=== PATIENT | female | born 1960 | race Caucasian/White ===

== ENCOUNTER 2022-09-11 06:48 | Day surgery (SDC) | payer OTHER ==
[~2022-09-11 06:48] MED LIST: Versed 2 MG/2 ML Injection ONE
[2022-09-11] MEDS ORDERED: Lactated Ringers 1,000 ML IV ONE (07:16)
[2022-09-11] MEDS ORDERED: CEFAZOLIN 2 GM-D5W BAG** 2 GM/50 ML ML IV ONE (07:16)
[2022-09-11] MEDS ORDERED: Lactated Ringers 1,000 ML IV SCH (07:30)
[2022-09-11] MEDS ORDERED: CEFAZOLIN 2 GM-D5W BAG** 2 GM/50 ML ML IV SCH (07:30)
[2022-09-11 07:37] LABS: Hemoglobin 13.5 g/dL (12.0-16.0); Mean Cell Volume 83.2 fL (78-100); Mean Corpuscular Hemoglobin 26.7 pg (26-32); Mean Corpuscular Hgb Concent. 32.1 g/dL (32-36); Mean Platelet Volume 9.5 fL (7.5-11.0); Platelet Count 290 x10^3/uL (150-450); Red Blood Count 5.05 x10^6/uL (4.1-5.4); Red Cell Distribution Width 13.6 % (11.5-14.0); White Blood Count 7.9 x10^3/uL (4.0-10.5)
[2022-09-11 07:52] LABS: ALBUMIN 4.8 g/dL (3.5-5.0); ALKALINE PHOSPHATASE 104 U/L (38-126); BLOOD UREA NITROGEN 17 mg/dL (7-17); CHLORIDE 107 mmol/L (98-107); Calcium 9.2 mg/dL (8.4-10.2); Carbon Dioxide 25 mmol/L (22-30); Creatinine 1 0.68 mg/dL (0.52-1.04); EST GLOMERULAR FILTRATION RATE > 60.0 ML/MIN; Glucose 152 mg/dL (74-106); INR 0.93 (0.8-3.0); PROTIME 10.2 SECONDS (9.4-12.5); PTT 29.5 SECONDS (25.1-36.5); SGOT/AST 27 U/L (14-36); SGPT/ALT 23 U/L (0-35); SODIUM 142 mmol/L (137-145)
[2022-09-11 07:53] LABS: Potassium 4.5 mmol/L (3.5-5.1)
[2022-09-11] MEDS ORDERED: DIPRIVAN 200 MG/20 ML IV ONE (09:12)
[2022-09-11] MEDS ORDERED: Versed 2 MG/2 ML Injection ONE (09:12)
[2022-09-11] MEDS ORDERED: SUBLIMAZE 100 MCG/2 ML ONE (09:12)
[2022-09-11] MEDS ORDERED: Zemuron 100 MG/10 ML ONE (09:16)
[2022-09-11] MEDS ORDERED: Marcaine Mpf 0.5% Vial 30 Ml ONE (09:18)
[2022-09-11] MEDS ORDERED: XYLOCAINE 1% HCL 20 ML MDV ONE (09:19)
[2022-09-11] MEDS ORDERED: Sodium Chloride 0.9% 1000 ML 1,000 ML ONE (09:46)
[2022-09-11] MEDS ORDERED: BRIDION 200MG/2ML IV ONE (09:54)
[2022-09-11 10:53] VITALS: BP 158/69; PULSE 79; O2SAT 97
--- NOTE | 2022-09-11 13:09 | OP ---
SURGERY DATE/TIME: 09/11/2022 0911 PREOPERATIVE DIAGNOSES: 1) Neoplasm of unknown origin right foot. 2) Pain right foot. 3) Difficulty with ambulation. POSTOPERATIVE DIAGNOSES: 1) Neoplasm of unknown origin right foot. 2) Pain right foot. 3) Difficulty with ambulation. PROCEDURE: Excision of soft tissue mass. SURGEON: Ko James DPM. TICKET AGENT: None. ANESTHESIA: General. HEMOSTASIS: Ankle tourniquet set to 250 mm of Mercury for 19 total tourniquet minutes. ESTIMATED BLOOD LOSS: Less than 1 cc. MATERIALS: 3-0 Nylon. INJECTABLES: 20 cc of 1:1 mixture of 1% lidocaine plain and 0.5% bupivacaine plain injected in V block-type fashion. INDICATION FOR SURGERY: Maria Luisa is a very pleasant 61-year-old female who presented to my office some time two weeks ago. The patient did have concerns over an abnormal mass on the plantar aspect of her right foot. The suspected pathology was a ganglion cyst and an attempt at aspiration was made. However at that time when aspiration was attempted, a significant amount of yellow granular tissue was aspirated from the site and this was sent for culture coming back negative. However when sent for pathology it demonstrated atypical epithelioid cells in a background of abundant macrophages, multinucleated giant cells and debris. On the path report it did indicate that there is a potential for malignancy and discussion was had with the patient in regards to presenting options. The patient understands there is a potential that this is a malignant neoplasm or has the potential to become malignant. However, very low probability of malignancy in soft tissue in the foot. The patient would like to proceed at this time with removal of the soft tissue mass for definitive diagnosis. I am in agreement of this. The patient understands all risks, complications and benefits of surgical intervention at this time including but not limited to infection, hematoma, seroma, possibility of delayed skin healing or nonskin healing, postoperative pain and possible need for further surgical intervention at a later date. No guarantees were provided as to the outcome. At this time she wishes to proceed. DESCRIPTION OF PROCEDURE AND FINDINGS: The patient is brought into the OR and placed on the OR table in the supine position. At this time general anesthesia was administered until the patient was sedated. Following this, the right lower extremity was prepped and draped in typical sterile fashion and lowered onto the surgical field. At this time the tourniquet was inflated to 250 mm of Mercury and attention was directed to the plantar aspect of the right foot. An incision was made parallel with the resting skin tension line. Following this sharp dissection was carried out utilizing [place] [employer] dissection scissor. Following this a soft tissue mass was encountered fairly early the yellow debris was encountered once again this was flushed and capsular tissue was identified and resected out. A picture of the capsule was taken and it measured approximately 1.2 cm in length and 1.1 cm in width this was handed off the field for pathologic assessment. Copious amounts of sterile saline were utilized to flush the surgical site. The surgical site was then coapted utilizing 4-0 Monocryl and 3-0 Nylon in a simple buried interrupted-type fashion and an interrupted simple-type fashion respectively. The tourniquet was let down. A dressing consisting of Betadine, Adaptic, 4x4, Kerlix and DAISY was applied to the right lower extremity. The patient was then reversed from anesthesia and returned to the postoperative anesthesia care unit with vital signs stable and vascular status intact. The patient handled the procedure as well as anesthesia without significant complication. Postoperative orders as indicated in the patient's discharge chart.
== END 2022-09-11 11:05 | disposition home or self-care (01) ==
LOC: SDC 06:48
PROVIDERS: ATTEND Podiatrist Foot & Ankle Surgery
DX: L72.9 Follicular cyst of the skin and subcutaneous tissue, unspecified (principal); M79.671 Pain in right foot; R26.2 Difficulty in walking, not elsewhere classified
CPT/HCPCS: 11422; 36415; 80053; 85027; 85610; 85730; 87046; 87070; 87075; 87205; 93005; J0690; J2250; J2704; J3010